=== PATIENT | female | born 1960 | race Caucasian/White ===

== ENCOUNTER → 2020-06-06 | Outpatient (CLI) | payer OTHER ==
[~2020-06-06] MED LIST: ALBUTEROL SULFAT2 MG PO; AMLODIPINE BESYL5 MG PO; AMOXICILLIN 50500 M1 PO; BYSTOLIC 5 MG5 M1 PO; EXCEDRIN CAPLE1 EACH; FERROUS GLUCON325 M4 PO; IRON GLUCONATE PO; MIDRIN CAPSULE1 CAP PO; MUCINEX600 MG PO; REQUIP5 MG PO; SINGULAIR 10 MG10 M1 PO; SYNTHROID25 MCG PO; VITAMIN C + RO500 MG PO
== END ==
LOC: SJCVCIMAG 05-30 09:54
PROVIDERS: ATTEND Internal Medicine Cardiovascular Disease
DX: I07.1 Rheumatic tricuspid insufficiency (principal); I10 Essential (primary) hypertension; E78.5 Hyperlipidemia, unspecified; R06.00 Dyspnea, unspecified; R07.89 Other chest pain; J45.909 Unspecified asthma, uncomplicated; Z85.3 Personal history of malignant neoplasm of breast